=== PATIENT | female | born 1970 | race African-American/Black ===

== ENCOUNTER → 2024-08-05 | Day surgery (SDC) | payer OTHER ==
[2024-08-04 09:49] VITALS: BMI 52.7
[~2024-08-05] MED LIST: CEFAZOLIN 2 GM VIAL ONE; Dexamethasone 4 mg/ml Vial ONE; EPINEPHrine 1 MG/ML AMP ONE; Lidocaine 1% PF 5 ML VIAL ONE; Mupirocin 2% Ointment 22 GM Tube ONE; Ondansetron PF 4 MG/2 ML Vial ONE; PROPOFOL 20 ML ONE; fentaNYL 50 mcg/mL 1 mL Vial ONE
== END ==
LOC: CSHSDC 06:44
PROVIDERS: ATTEND Otolaryngology Otolaryngic Allergy
PROC: 0HB2XZZ Excision of Right Ear Skin, External Approach (ICD-10-PCS; principal; 2024-08-05)
DX: Q18.1 Preauricular sinus and cyst (principal)
CPT/HCPCS: 88304; J0171; J1100; J2405; J2704; J3010

== ENCOUNTER 2024-10-05 17:51 | Emergency (ER) | payer OTHER ==
[~2024-10-05 17:51] MED LIST changes: -CEFAZOLIN 2 GM VIAL ONE; -Dexamethasone 4 mg/ml Vial ONE; -EPINEPHrine 1 MG/ML AMP ONE; +Iopamidol 300 61% 100 ML VIAL FS ONE; -Lidocaine 1% PF 5 ML VIAL ONE; -Mupirocin 2% Ointment 22 GM Tube ONE; -Ondansetron PF 4 MG/2 ML Vial ONE; -PROPOFOL 20 ML ONE; -fentaNYL 50 mcg/mL 1 mL Vial ONE
[2024-10-05 18:41] LABS: Bilirubin Neg (Negative); Blood, Urine Negative (Negative); Clarity Clear (Clear); Glucose, Urine (Dipstick) Normal (Negative); Ketone, Urine Negative (Negative); Leukocyte 25 (Negative); Nitrite Negative (Negative); Protein, Urine (Dipstick) 30 mg/dl (Neg-Trace); Specific Gravity, Urine 1.015 (1.005-1.030); Urobilinogen Normal mg/dL (Less than 2)
[2024-10-05 19:00] LABS: CAUTI Indications for Culture Pelvic or flank pain; RBC/HPF 0-3 HPF (0-3); WBC/HPF 0-3 HPF (0-3)
[2024-10-05 19:01] LABS: Bacteria/HPF 1+ HPF (None Seen); Mucous/LPF 1+ LPF (<2+)
[2024-10-05 19:02] LABS: Urine Culture Reflex No No
[2024-10-05] MEDS ORDERED: Ondansetron PF 4 MG/2 ML Vial ONE (19:12)
[2024-10-05] MEDS ORDERED: Ketorolac Tromethamine 30 MG (1 mL) VIAL ONE (19:15)
[2024-10-05 19:50] LABS: #Basophils 0.01 10x3/uL (0.0-0.2); #Monocytes 0.69 10x3/uL (0.0-1.1); #Neutrophils 8.21 10x3/uL (1.5-8.4); %Basophils 0.1 % (0.0-2.0); %Lymphocytes 9.1 % (18.0-47.0); %Neutrophils 83.6 % (40.0-75.0); Hematocrit 37.6 % (34.9-44.5); Mean Corpuscular HGB CONC 31.9 g/dL (32.0-36.0); Mean Corpuscular Hemoglobin 26.4 pg (27.0-33.0); Mean Corpuscular Volume 82.6 fL (81.6-98.3); Mean Platelet Volume 9.9 fL (7.4-10.4); Platelet Count 351 10x3/uL (150-450); RBC Distribution Width 14.2 % (11.5-14.5); Red Blood Cell (RBC) Count 4.55 10x6/uL (3.90-5.03); White Blood Cell (WBC) Count 9.8 10x3/uL (3.5-10.5)
[2024-10-05 19:57] LABS: ALT (SGPT) 20 U/L (8-55); AST (SGOT) 12 U/L (5-34); Albumin 3.9 g/dL (3.5-5.0); Alkaline Phosphatase 58 U/L (40-110); Anion Gap 15 mmol/L (10-20); BUN (Urea Nitrogen) 6 mg/dL (9.8-20.1); Bilirubin, Total 0.6 mg/dL (0.2-1.2); Calc. Creatinine Clearance 0 mL/min (70-130); Calcium 9.9 mg/dL (7.8-10.44); Carbon Dioxide 25 mmol/L (22-29); Chloride 102 mmol/L (98-107); Estimated GFR 87; Globulin 4.5 g/dL (2.4-3.5); Glucose 112 mg/dL (70-105); Lipase 14 U/L (8-78); Potassium 3.8 mmol/L (3.5-5.1); Protein, Total 8.4 g/dL (6.0-8.3); Sodium 138 mmol/L (136-145)
== END 2024-10-05 20:52 | disposition home or self-care (01) ==
LOC: CSHERS 17:51
DX: K57.32 Diverticulitis of large intestine without perforation or abscess without bleeding (principal); I10 Essential (primary) hypertension; Z55.6 Problems related to health literacy
CPT/HCPCS: 74177; 80053; 81001; 83605; 83690; 85025; 96374; 96375; J1885; J2405; Q9967